=== PATIENT | female | born 1955 | race Caucasian/White ===

== ENCOUNTER 2019-02-04 15:47 | Outpatient (RCR) | payer OTHER | END 2019-02-17 | disposition home or self-care (01) | LOC: WCC 15:47 | DX: T65.0X Toxic effect of cyanides (principal); X58.XXXS Exposure to other specified factors, sequela; Z88.8 Allergy status to other drugs, medicaments and biological substances ==

== ENCOUNTER 2019-02-09 10:28 | Outpatient (RCR) | payer SELFPAY | END 2019-02-17 | disposition home or self-care (01) | LOC: WCC 10:28 | DX: T65.0X Toxic effect of cyanides (principal); X58.XXXS Exposure to other specified factors, sequela; Z88.8 Allergy status to other drugs, medicaments and biological substances | CPT/HCPCS: G0277 ×4 ==

== ENCOUNTER 2019-02-19 10:31 | Outpatient (RCR) | payer SELFPAY | END 2019-03-20 | disposition home or self-care (01) | LOC: WCC 10:31 | DX: T65.0X Toxic effect of cyanides (principal); X58.XXXS Exposure to other specified factors, sequela | CPT/HCPCS: G0277 ×4 ==

== ENCOUNTER 2019-04-06 12:17 | Outpatient (RCR) | payer SELFPAY | END 2019-04-18 | disposition home or self-care (01) | LOC: WCC 12:17 | DX: T65.0X Toxic effect of cyanides (principal); X58.XXXS Exposure to other specified factors, sequela ==